=== PATIENT | male | born 1955 | race Caucasian/White ===

== ENCOUNTER 2019-06-27 08:49 | Emergency (ER) | payer MEDICARE, OTHER ==
[~2019-06-27] VITALS: Ht 188 cm; Wt 181.4 kg
[~2019-06-27 08:49] MED LIST: ASPI325T4 PO; BENA20TA14 PO; BUDE160A3 INH; DIAZ10TA3 PO; DULO60CA PO; ETOD400T3 PO; GABA300C10 PO; OMEG306C OR; OXYC-113 PO; QUET150T2 PO; VITA200T2 PO
[2019-06-27] MEDS ORDERED: KETOROLAC TROMETH 60MG/2ML VIAL IM ONE (11:00)
[2019-06-27] MEDS ORDERED: METHOCARBAMOL 500 MG TAB PO ONE (11:00)
[2019-06-27 11:50] VITALS: BP 110/62
== END 2019-06-27 11:49 | disposition home or self-care (01) ==
LOC: ER 08:52
DX: M54.16 Radiculopathy, lumbar region (principal); M19.90 Unspecified osteoarthritis, unspecified site; J45.909 Unspecified asthma, uncomplicated; I10 Essential (primary) hypertension; F12.90 Cannabis use, unspecified, uncomplicated; E66.01 Morbid (severe) obesity due to excess calories; Z88.0 Allergy status to penicillin; Z79.82 Long term (current) use of aspirin; Z79.899 Other long term (current) drug therapy; Z68.43 Body mass index [BMI] 50.0-59.9, adult
CPT/HCPCS: 72100; 96372; 99283; J1885

== ENCOUNTER 2020-01-29 16:51 | Inpatient (IN) | payer OTHER ==
[~2020-01-29] VITALS: Ht 185.4 cm; Wt 169.9 kg
[2020-01-29] MEDS ORDERED: methylPREDNISolone SOD SUCC 125 MG/2 ML VL IV ONE (17:30)
[2020-01-29 17:48] LABS: Basophils # (auto) 0 10 ^3/uL (0-0.2); Basophils % (auto) 0.5 % (0.0-2.0); Eosinophils # (auto) 0.2 10 ^3/uL (0-0.8); Eosinophils % (auto) 2.2 % (0.0-7.0); Hematocrit 42.4 % (41.0-53.0); Hemoglobin 14.3 g/dL (13.5-17.5); Lymphocytes # (auto) 1.8 10 ^3/uL (0.4-5.4); Lymphocytes % (auto) 25.5 % (10.0-50.0); Mean Corpuscular Hemoglobin 30.6 pg (28.0-32.0); Mean Corpuscular Hgb Conc. 33.7 g/dL (32.0-36.0); Mean Corpuscular Volume 90.7 fL (80.0-100.0); Monocytes # (auto) 0.8 10 ^3/uL (0-1.3); Monocytes % (auto) 10.5 % (0.0-12.0); Neutrophils # (auto) 4.4 10 ^3/uL (1.6-8.6); Neutrophils % (auto) 61.3 % (37.0-80.0); Nucleated Red Blood Cells % 0.2 %; Platelet Count (auto) 238 10^3/uL (140-450); Red Blood Cells 4.68 10^6/uL (4.5-5.90); Red Cell Distribution Width 14.5 % (11.8-14.3); White Blood Cell 7.2 10^3/uL (4.4-10.8)
[2020-01-29 18:08] LABS: Albumin 3.3 g/dL (3.4-5.0); Anion Gap 4 (5-15); Aspartate Aminotransferase 25 U/L (15-37); BUN/Creatinine Ratio 16.3; Blood Urea Nitrogen 16 mg/dL (7-18); Calcium 8.6 mg/dL (8.5-10.1); Carbon Dioxide 29 mmol/L (21-32); Chloride 106 mmol/L (98-107); GFR African American 99 mL/min; GFR Non-African American 82 mL/min; Glucose 97 mg/dL (74-106); Magnesium 1.7 mg/dL (1.6-2.6); Potassium 4.2 mmol/L (3.5-5.1); Sodium 139 mmol/L (136-145)
[2020-01-29 18:11] LABS: Lactic Acid w/Reflex 2.2 mmol/L (0.4-2.0)
[2020-01-29 18:13] LABS: Alanine Aminotransferase 41 U/L (16-61); Alkaline Phosphatase 56 U/L (45-117); Bilirubin, Total 0.3 mg/dL (0.2-1.0); Total Protein 7.2 g/dL (6.4-8.2)
[2020-01-29] MEDS ORDERED: ONDANSETRON HCL 4 MG/2 ML VIAL IV PRN (19:00)
[2020-01-29] MEDS ORDERED: ACETAMINOPHEN 500 MG TAB PO PRN (19:00)
[2020-01-29] MEDS ORDERED: NITROGLYCERIN 0.4 MG SL TAB SL PRN (19:00)
[2020-01-29] MEDS ORDERED: MORPHINE SULF INJ 2 MG/ML SYRINGE 1ML IV PRN ×2 (19:00)
[2020-01-29 19:18] VITALS: BP 107/61
[2020-01-29] MEDS ORDERED: ALBUTEROL SULF 2.5 MG/0.5ML(0.5%) NEB SOLN NEB ONE (19:45)
[2020-01-29] MEDS ORDERED: IPRATROPIUM BROM 0.5 MG/2.5ML INH SOL NEB ONE (19:45)
[2020-01-29] MEDS: SODIUM CHLORIDE 0.9% 1,000 ML IV SCH (20:16)
[2020-01-29] MEDS: cefTRIAXone 1GM/50ML D5W 50 ML IV SCH (20:17)
--- NOTE | 2020-01-29 20:45 | NUR ---
Telemetry admit from [facility] admitted to Telemetry unit. Patient oriented to Zuly Villalobos RN primary RN, unit, room, bed, and unit policies regarding patient care and visiting hours. Patient now on continuous telemetry monitoring, tele box #50. Patient placed on bedside oxygen at 2 liters, weighed by bedscale and encouraged to call if they need something. All questions and concerns addressed, patient verbalized understanding. Bed is in lowest locked position with bed rails up x2 and call light is within reach of the patient.
[2020-01-29] MEDS ORDERED: BUSP5TAB51 PO (21:17)
[2020-01-29] MEDS ORDERED: PREG75CA PO (21:17)
[2020-01-29] MEDS ORDERED: SPIR25TA8 PO (21:17)
[2020-01-29] MEDS ORDERED: PRAM0.252 PO (21:17)
[2020-01-29] MEDS ORDERED: WARF6TAB21 PO (21:17)
[2020-01-29] MEDS ORDERED: VENL150C58 PO (21:17)
[2020-01-29] MEDS ORDERED: POTA1TAB61 PO (21:17)
[2020-01-29] MEDS ORDERED: METO-169 PO (21:17)
[2020-01-29] MEDS ORDERED: ARIP2TAB PO (21:17)
[2020-01-29] MEDS ORDERED: SIMV-8 PO (21:17)
[2020-01-29] MEDS ORDERED: FURO40TA4 PO (21:17)
[2020-01-29 21:20] VITALS: BP 117/77
[2020-01-29 22:00] VITALS: BP 117/77
[2020-01-29] MEDS: GABAPENTIN 300 MG CAP PO SCH (22:00)
[2020-01-29] MEDS: IPRATROPIUM BROM 0.5 MG/2.5ML INH SOL NEB SCH (22:04)
[2020-01-29] MEDS: ALBUTEROL SULF 2.5 MG/0.5ML(0.5%) NEB SOLN NEB SCH (22:04)
[2020-01-29] MEDS: BUDESONIDE (INHALATION) 0.5 MG/2 ML NEB NEB SCH (22:04)
[2020-01-29] MEDS: VENLAFAXINE HCL 37.5MG TABLET PO SCH (22:11)
[2020-01-29] MEDS: AZITHROMYCIN 500MG/ 250ML 250 ML IV SCH (22:14)
--- NOTE | 2020-01-29 22:15 | NUR ---
Patient refused med: Patient refused gabapentin medication stating "I haven't taken gabapentin in years. I take a new medication for nerve pain, I dont need that one." Educated he patient about medication but patient refused.
[2020-01-30 01:12] LABS: Urine Bacteria FEW /hpf (None Seen); Urine Blood Negative /uL (Negative); Urine Hyaline Cast MOD /lpf (0 - 2); Urine Mucus FEW (None Seen); Urine Specific Gravity 1.031 (1.001-1.035); Urine WBC 1 /hpf (0 - 3)
[2020-01-30 05:00] VITALS: BP 143/66
[2020-01-30] MEDS: GABAPENTIN 300 MG CAP PO SCH ×3 (05:51→22:00)
[2020-01-30] MEDS: IPRATROPIUM BROM 0.5 MG/2.5ML INH SOL NEB SCH ×5 (06:26→22:18)
[2020-01-30] MEDS: ALBUTEROL SULF 2.5 MG/0.5ML(0.5%) NEB SOLN NEB SCH ×5 (06:26→22:18)
[2020-01-30 07:03] LABS: Basophils # (auto) 0 10 ^3/uL (0-0.2); Basophils % (auto) 0.1 % (0.0-2.0); Eosinophils # (auto) 0 10 ^3/uL (0-0.8); Hematocrit 40.2 % (41.0-53.0); Hemoglobin 13.5 g/dL (13.5-17.5); Lymphocytes # (auto) 0.9 10 ^3/uL (0.4-5.4); Lymphocytes % (auto) 12.6 % (10.0-50.0); Mean Corpuscular Hemoglobin 30.7 pg (28.0-32.0); Mean Corpuscular Hgb Conc. 33.7 g/dL (32.0-36.0); Mean Corpuscular Volume 91.2 fL (80.0-100.0); Monocytes # (auto) 0.2 10 ^3/uL (0-1.3); Monocytes % (auto) 3.1 % (0.0-12.0); Neutrophils # (auto) 5.7 10 ^3/uL (1.6-8.6); Neutrophils % (auto) 84.2 % (37.0-80.0); Nucleated Red Blood Cells % 0.1 %; Platelet Count (auto) 232 10^3/uL (140-450); Red Blood Cells 4.41 10^6/uL (4.5-5.90); Red Cell Distribution Width 14.5 % (11.8-14.3); White Blood Cell 6.8 10^3/uL (4.4-10.8)
[2020-01-30 07:21] LABS: BUN/Creatinine Ratio 22.4; Calcium 8.5 mg/dL (8.5-10.1); Potassium 4.3 mmol/L (3.5-5.1)
--- NOTE | 2020-01-30 08:00 | NUR ---
OPENING SHIFT NOTE ASSUMED CARE OF PATIENT AWAKE AND ALERT. NO S/S OF DISTRESS OR COMPLAINTS OF PAIN. PATIENT IS COUGHING A MODERATE AMOUNT AND PRODUCING YELLOWISH SPUTUM. INFORMED PATIENT OF NEED TO COLLECT SAMPLE. PATIENT UPDATED ON POC FOR THE DAY AND ALL QUESTIONS ANSWERED. BED IS IN LOWEST, LOCKED POSITION WITH SIDE RAILS UP X2 AND CALL LIGHT WITHIN REACH. WILL CONTINUE TO MONITOR Q1HR AND PRN.
[2020-01-30 09:00] VITALS: BP 136/69
[2020-01-30] MEDS: cefTRIAXone 1GM/50ML D5W 50 ML IV SCH (09:45)
[2020-01-30] MEDS: AZITHROMYCIN 500MG/ 250ML 250 ML IV SCH (09:46)
[2020-01-30] MEDS: VENLAFAXINE HCL 37.5MG TABLET PO SCH ×2 (09:46→22:05)
[2020-01-30] MEDS: ASPirin 81 mg TAB PO SCH (09:46)
[2020-01-30] MEDS: FAMOTIDINE 20 MG TAB PO SCH (09:46)
[2020-01-30] MEDS ORDERED: OPTISON 3ml Vial for INJ IV ONE (09:54)
[2020-01-30] MEDS: SODIUM CHLORIDE 0.9% 1,000 ML IV SCH ×2 (10:10→22:05)
--- NOTE | 2020-01-30 10:30 | NUR ---
SPUTUM SPUTUM SAMPLE SENT TO LAB
[2020-01-30] MEDS: BUDESONIDE (INHALATION) 0.5 MG/2 ML NEB NEB SCH ×2 (10:31→18:53)
[2020-01-30 13:00] VITALS: BP 125/89
[2020-01-30] MEDS ORDERED: METOPROLOL SUCCINATE XL 50 MG TAB PO ONE (13:00)
[2020-01-30] MEDS ORDERED: FUROSEMIDE 100 MG/10ML VIAL IV ONE (13:00)
[2020-01-30] MEDS ORDERED: RIV20T PO (13:48)
[2020-01-30 14:06] LABS: INR 1.06 (0.9-1.15); Partial Thromboplastin Time 27.3 sec (23.64-32.05)
[2020-01-30] MEDS: methylPREDNISolone SOD SUCC 125 MG/2 ML VL IV SCH ×2 (14:58→22:06)
--- NOTE | 2020-01-30 15:05 | NUR ---
CARDIO CONSULT [facility] DENTAL TECHNICIAN APPRENTICE AT BEDSIDE CONSULTING WITH PATIENT.
[2020-01-30] MEDS ORDERED: MAGNESIUM SULFATE 1GM/100ML 100 ML IV ONE (15:45)
--- NOTE | 2020-01-30 16:39 | NUR ---
PULMO CONSULT DR PUGH AT BEDSIDE CONSULTING WITH PATIENT.
[2020-01-30 17:00] VITALS: BP 150/93
[2020-01-30] MEDS ORDERED: WARFARIN SODIUM 2 MG TAB PO ONE (17:00)
[2020-01-30] MEDS: FUROSEMIDE 100 MG/10ML VIAL IV SCH (17:31)
--- NOTE | 2020-01-30 19:32 | NUR ---
Opening Shift Note Assumed care of patient, awake and alert oriented x4. No S/S of distress/SOB or pain noted. Instructed on POC and to call for assist PRN. Bed is in lowest locked position with bed rails up x2 and call light is within reach of the patient.
[2020-01-30 22:00] VITALS: BP 135/99
[2020-01-30] MEDS: ATORVASTATIN 20 MG TAB PO SCH (22:05)
[2020-01-30] MEDS: PRAMIPEXOLE DIHYDROCHLORIDE MO 0.25 MG TAB PO SCH (22:05)
--- NOTE | 2020-01-30 22:45 | NUR ---
WOUND PICTURES TAKEN: Patient reported to this RN that they have a left upper neck abscess that oozes on and off. Patient showed neck and pus was visualized. To place wound consult and take pictures. Patient stated "I've had this abscess in my neck for two months and it leaks on and off." Will place wound consult for patient.
[2020-01-31] VITALS (7 sets, daily range): BP systolic 130–155; BP diastolic 69–98
[2020-01-31] MEDS: HYDROcodone-ACET 5/325MG TAB PO PRN ×3 (02:37→21:39)
--- NOTE | 2020-01-31 02:37 | NUR ---
PAIN PATIENT REPORTING LOWER BACK PAIN RATED 6-7/10. PATIENT GIVEN NORCO ORDERED FOR MODERATE PAIN.
[2020-01-31] MEDS: FUROSEMIDE 100 MG/10ML VIAL IV SCH ×2 (05:30→18:07)
[2020-01-31] MEDS: methylPREDNISolone SOD SUCC 125 MG/2 ML VL IV SCH ×3 (05:31→21:13)
[2020-01-31] MEDS: GABAPENTIN 300 MG CAP PO SCH ×3 (05:34→21:14)
[2020-01-31 06:30] LABS: Basophils # (auto) 0 10 ^3/uL (0-0.2); Basophils % (auto) 0.1 % (0.0-2.0); Eosinophils # (auto) 0 10 ^3/uL (0-0.8); Hematocrit 42.1 % (41.0-53.0); Hemoglobin 13.9 g/dL (13.5-17.5); Lymphocytes # (auto) 1.1 10 ^3/uL (0.4-5.4); Lymphocytes % (auto) 10.5 % (10.0-50.0); Mean Corpuscular Hemoglobin 29.9 pg (28.0-32.0); Mean Corpuscular Hgb Conc. 33.1 g/dL (32.0-36.0); Mean Corpuscular Volume 90.4 fL (80.0-100.0); Monocytes # (auto) 0.5 10 ^3/uL (0-1.3); Monocytes % (auto) 4.6 % (0.0-12.0); Neutrophils # (auto) 9.2 10 ^3/uL (1.6-8.6); Neutrophils % (auto) 84.8 % (37.0-80.0); Platelet Count (auto) 278 10^3/uL (140-450); Red Blood Cells 4.65 10^6/uL (4.5-5.90); Red Cell Distribution Width 14.2 % (11.8-14.3); White Blood Cell 10.9 10^3/uL (4.4-10.8)
[2020-01-31 06:37] LABS: INR 1.03 (0.9-1.15); Partial Thromboplastin Time 26.3 sec (23.64-32.05)
[2020-01-31] MEDS: IPRATROPIUM BROM 0.5 MG/2.5ML INH SOL NEB SCH ×5 (06:41→22:07)
[2020-01-31] MEDS: ALBUTEROL SULF 2.5 MG/0.5ML(0.5%) NEB SOLN NEB SCH ×5 (06:41→22:07)
[2020-01-31] MEDS: BUDESONIDE (INHALATION) 0.5 MG/2 ML NEB NEB SCH ×2 (06:41→18:34)
[2020-01-31 06:42] LABS: Albumin 3.5 g/dL (3.4-5.0); Calcium 8.9 mg/dL (8.5-10.1); Potassium 4.2 mmol/L (3.5-5.1)
[2020-01-31 06:46] LABS: BUN/Creatinine Ratio 22.9; Bilirubin, Total 0.5 mg/dL (0.2-1.0); Total Protein 7.2 g/dL (6.4-8.2)
--- NOTE | 2020-01-31 08:00 | NUR ---
OPENING SHIFT NOTED ASSUMED CARE OF PATIENT AWAKE AND ALERT. NO S/S OF DISTRESS NOTED OR COMPLAINTS OF PAIN. PATIENT UPDATED ON POC FOR THE DAY AND ALL QUESTIONS ANSWERED. BED IS IN LOWEST, LOCKED POSITION WITH SIDE RAILS UP X2 AND CALL LIGHT WITHIN REACH. WILL CONTINUE TO MONITOR Q1H AND PRN.
[2020-01-31] MEDS: cefTRIAXone 1GM/50ML D5W 50 ML IV SCH (08:21)
[2020-01-31] MEDS: FAMOTIDINE 20 MG TAB PO SCH (09:39)
[2020-01-31] MEDS: SPIRONOLACTONE 25 MG TAB PO SCH (09:39)
[2020-01-31] MEDS: BENAZEPRIL HCL 10 MG TAB PO SCH (09:39)
[2020-01-31] MEDS: AZITHROMYCIN 500MG/ 250ML 250 ML IV SCH (09:39)
[2020-01-31] MEDS: METOPROLOL SUCCINATE XL 50 MG TAB PO SCH (09:40)
[2020-01-31] MEDS: VENLAFAXINE HCL 37.5MG TABLET PO SCH ×2 (09:40→21:13)
[2020-01-31] MEDS: RIVAROXABAN 20 MG TAB PO SCH (09:40)
[2020-01-31] MEDS: ASPirin 81 mg TAB PO SCH (09:40)
[2020-01-31] MEDS: POTASSIUM CHL 20 Meq TABLET PO SCH (09:40)
[2020-01-31] MEDS: SODIUM CHLORIDE 0.9% 1,000 ML IV SCH ×2 (10:54→23:27)
--- NOTE | 2020-01-31 11:20 | NUR ---
WOUND CARE NOTE: Wound care in to see patient per wound care request regarding "draining L upper neck abscess" that are noted by bedside nurse upon assessment. Bedside nurse took photograph of patient's wound for reference. Patient is 64 years old male with admitting diagnosis of Acute on Chronic Resp Failure. Patient with history of Asthma and CHF. Patient is resting in bed in Rm. 289B. Patient is awake, alert and oriented. Patient denies any pain at this time. Patient is ambulatory with walker and he's self turning and repositioning. His Joel score is 18.. Noted small (0.5x0.5cm) pimple like open wound to patient's L upper neck. Wound pale pink with pink periwound, minimal purulent drainage noted, no odor noted. Patient reported that he has had the neck draining wound "off and on for two months". He added that he has not seen a doctor for it. Cleansed patient's L upper neck wound with NS, took specimen for wound culture and sent to lab for processing. Applied Thera honey gel to open wound , covered with Opti foam gentle dressing. Patient turned to his side to examine sacral, back and other bony prominences; no pressure injury noted. Patient tolerated well. Bed in low position, call hills on hand, all safety precautions in placed. RECOMMENDATION: Nursing to continue with Daily/PRN dressing change to L upper neck wound per MD order, Dietary consult for wound,surgical consult, continue monitoring by wound care while patient is hospitalized. Addendum: 01/31/20 at 1438 by Alessandra Vallejo RN Amended: Links added.
--- NOTE | 2020-01-31 20:10 | NUR ---
Opening Shift Note Assumed care of patient, awake and alert. No S/S of distress/SOB. Patient is on 3 liters of oxygen via nasal cannula. Respirations even and unlabored. Instructed on POC and to call for assist PRN, will continue to monitor for changes Q1hr and PRN.
[2020-01-31] MEDS: ATORVASTATIN 20 MG TAB PO SCH (21:14)
[2020-01-31] MEDS: PRAMIPEXOLE DIHYDROCHLORIDE MO 0.25 MG TAB PO SCH (21:14)
--- NOTE | 2020-01-31 22:06 | NUR ---
Hospitalist paged regarding patient requesting stool softener and sleeping pill. Awaiting callback at this time.
--- NOTE | 2020-01-31 23:00 | NUR ---
ALEIDA Hedrick, called back regarding patient requesting stool softener and sleeping pill. New orders received.
[2020-01-31] MEDS ORDERED: DOCUSATE SOD 100 MG CAP PO ONE (23:30)
[2020-01-31] MEDS ORDERED: TEMAZEPAM 15 MG CAP PO ONE (23:30)
--- NOTE | 2020-01-31 23:40 | NUR ---
Wound care done per MD order to left neck wound due to Optifoam dressing found removed. Wound cleansed with NS, pat dry with 4x4 gauze, thera honey gel applied, and Optifoam applied. Patient tolerated well.
[2020-02-01] MEDS: GABAPENTIN 300 MG CAP PO SCH (05:00)
[2020-02-01] MEDS: methylPREDNISolone SOD SUCC 125 MG/2 ML VL IV SCH (05:01)
[2020-02-01] MEDS: HYDROcodone-ACET 5/325MG TAB PO PRN (05:06)
--- NOTE | 2020-02-01 05:23 | NUR ---
Blood pressure reassessed and is 142/73. Diastolic BP now within normal limits. Previous BP was 145/102.
[2020-02-01] MEDS: FUROSEMIDE 100 MG/10ML VIAL IV SCH (05:25)
[2020-02-01 06:02] VITALS: BP 145/102
[2020-02-01] MEDS: ALBUTEROL SULF 2.5 MG/0.5ML(0.5%) NEB SOLN NEB SCH ×2 (06:15→10:47)
[2020-02-01] MEDS: IPRATROPIUM BROM 0.5 MG/2.5ML INH SOL NEB SCH ×2 (06:15→10:47)
[2020-02-01] MEDS: BUDESONIDE (INHALATION) 0.5 MG/2 ML NEB NEB SCH (06:16)
[2020-02-01 06:52] LABS: Basophils # (auto) 0 10 ^3/uL (0-0.2); Basophils % (auto) 0.1 % (0.0-2.0); Eosinophils # (auto) 0 10 ^3/uL (0-0.8); Hematocrit 42.2 % (41.0-53.0); Hemoglobin 14.1 g/dL (13.5-17.5); Lymphocytes % (auto) 7.1 % (10.0-50.0); Mean Corpuscular Hemoglobin 30.3 pg (28.0-32.0); Mean Corpuscular Hgb Conc. 33.4 g/dL (32.0-36.0); Mean Corpuscular Volume 90.7 fL (80.0-100.0); Monocytes % (auto) 7.1 % (0.0-12.0); Neutrophils # (auto) 11.6 10 ^3/uL (1.6-8.6); Neutrophils % (auto) 85.7 % (37.0-80.0); Nucleated Red Blood Cells % 0.1 %; Platelet Count (auto) 306 10^3/uL (140-450); Red Blood Cells 4.65 10^6/uL (4.5-5.90); Red Cell Distribution Width 14.6 % (11.8-14.3); White Blood Cell 13.5 10^3/uL (4.4-10.8)
--- NOTE | 2020-02-01 07:00 | NUR ---
CLOSING NOTE No S/S of distress/SOB. Patient is on 3 liters of oxygen via nasal cannula. Respirations even and unlabored.
[2020-02-01 07:27] LABS: Albumin 3.5 g/dL (3.4-5.0); Potassium 4.1 mmol/L (3.5-5.1)
[2020-02-01 07:31] LABS: BUN/Creatinine Ratio 25.8; Bilirubin, Total 0.3 mg/dL (0.2-1.0); Total Protein 7.3 g/dL (6.4-8.2)
--- NOTE | 2020-02-01 07:42 | NUR ---
Opening Note Assumed pt care from [facility] nurse. Pt is a/ox4 with no s/s of distress or SOB. Pt is currently sitting upright in bed eating breakfast with no complaints at this time. Discussed POC with pt and possible d/c today; pt verbalized understanding. Safety measures maintained with call light within reach, bed in lowest position and side rails up. Will continue to monitor.
[2020-02-01 08:05] LABS: INR 1.07 (0.9-1.15)
[2020-02-01] MEDS: cefTRIAXone 1GM/50ML D5W 50 ML IV SCH (08:29)
[2020-02-01 09:00] VITALS: BP 155/78
[2020-02-01] MEDS: AZITHROMYCIN 500MG/ 250ML 250 ML IV SCH (09:41)
[2020-02-01] MEDS: ASPirin 81 mg TAB PO SCH (09:42)
[2020-02-01] MEDS: BENAZEPRIL HCL 10 MG TAB PO SCH (09:42)
[2020-02-01] MEDS: FAMOTIDINE 20 MG TAB PO SCH (09:42)
[2020-02-01] MEDS: METOPROLOL SUCCINATE XL 50 MG TAB PO SCH (09:42)
[2020-02-01] MEDS: SPIRONOLACTONE 25 MG TAB PO SCH (09:43)
[2020-02-01] MEDS: VENLAFAXINE HCL 37.5MG TABLET PO SCH (09:43)
[2020-02-01] MEDS: POTASSIUM CHL 20 Meq TABLET PO SCH (09:43)
[2020-02-01] MEDS: RIVAROXABAN 20 MG TAB PO SCH (09:43)
[2020-02-01] MEDS ORDERED: DOCUSATE SOD 100 MG CAP PO SCH (10:00)
--- NOTE | 2020-02-01 11:24 | NUR ---
Dr Jerry at [facility] to see pt. Plans to d/c pt home today on antibiotics. also requests that pt f/u with PCP as well as see his specialist at [facility] for submandibular abscess. Will implement and continue to monitor.
--- NOTE | 2020-02-01 11:30 | NUR ---
POM Pt received POM. Signed and placed in chart. All medications were given back.
--- NOTE | 2020-02-01 11:47 | NUR ---
Wound Photos Taken for Reference D/C photo to L neck taken for reference. Wound care done at this time.
[2020-02-01 11:51] VITALS: BP 155/78
--- NOTE | 2020-02-01 12:10 | NUR ---
IV D/C'ed Tele 50 D/C'ed IV to pt's R FA removed. Catheter was removed fully intact. Site is asymptomatic. Pressure was applied to site for 3 minutes with gauze and then wrapped in coban. Pt instructed to keep dressing on for 30 minutes; pt verbalized understanding. Tele box 50 removed and sent back to [facility] Tele staff made aware.
--- NOTE | 2020-02-01 12:44 | NUR ---
Pt D/C'ed Off Unit Pt d/c'ed off unit via wheelchair. Pt is a/ox4 with no s/s of distress or SOB. Pt has all belongings, education material was given, pt aware of need to f/u with PCP, and all questions were answered. IV and tele box were d/c'ed prior to d/c.
[2020-02-01 13:00] VITALS: BP 130/81
== END 2020-02-01 12:43 | disposition home or self-care (01) | DRG 193 ==
LOC: ER 16:51 → TELE 16:52 → TELE-WESTW 20:30
PROVIDERS: ADMIT Nurse Practitioner Acute Care; ATTEND Family Medicine
DX: J18.9 Pneumonia, unspecified organism (principal); J96.21 Acute and chronic respiratory failure with hypoxia; J44.1 Chronic obstructive pulmonary disease with (acute) exacerbation; E87.2 Acidosis; D68.59 Other primary thrombophilia; L02.11 Cutaneous abscess of neck; Z68.42 Body mass index [BMI] 45.0-49.9, adult; I48.91 Unspecified atrial fibrillation; E66.9 Obesity, unspecified; G47.30 Sleep apnea, unspecified; G25.81 Restless legs syndrome; E78.00 Pure hypercholesterolemia, unspecified; E66.01 Morbid (severe) obesity due to excess calories; F32.9 Major depressive disorder, single episode, unspecified; E83.42 Hypomagnesemia; F12.90 Cannabis use, unspecified, uncomplicated; G47.33 Obstructive sleep apnea (adult) (pediatric); I25.10 Atherosclerotic heart disease of native coronary artery without angina pectoris; Z79.01 Long term (current) use of anticoagulants; Z82.49 Family history of ischemic heart disease and other diseases of the circulatory system; Z99.81 Dependence on supplemental oxygen
CPT/HCPCS: 36415; 71045; 80048; 80053; 81001; 83605; 83735; 83880; 84443; 84484; 85025; 85610; 85730; 87040; 87070; 87205; 87804; 93005; 93306; 94640; 96374; G0378; J0696; Q9956